=== PATIENT | male | born 1965 | race Caucasian/White ===

== ENCOUNTER → 2020-11-08 | Outpatient (CLI) | payer BC | LOC: MHCPAIN 14:55 | DX: M47.817 Spondylosis without myelopathy or radiculopathy, lumbosacral region (principal); M54.2 Cervicalgia; M96.1 Postlaminectomy syndrome, not elsewhere classified; R51.9 Headache, unspecified; G89.29 Other chronic pain | CPT/HCPCS: G0463 ==